=== PATIENT | male | born 1985 | race African-American/Black ===

== ENCOUNTER 2017-09-08 21:28 | Emergency (ER) | payer SELFPAY ==
[2017-09-08] MEDS ORDERED: cefTRIAXone 250 MG in Lidocaine 1% 1 ML IM ONE (22:03)
[2017-09-08] MEDS ORDERED: metroNIDAZOLE 250 MG Tab PO ONE (22:03)
[2017-09-08] MEDS ORDERED: Azithromycin 250 MG Tab PO ONE (22:03)
--- NOTE | 2017-09-08 22:06 | EDM.PDOC ---
ED HPI GENERAL MEDICAL PROBLEM - General Chief Complaint: Genitourinary Problem Stated Complaint: POSSIBLE STD/BURNING Time Seen by Provider: 09/08/17 21:54 - History of Present Illness INITIAL COMMENTS - FREE TEXT/NARRATIVE: HISTORY AND PHYSICAL: History of present illness: The patient is a 31-year-old male who presents with 4-5 days of burning with urination as well as some recent scan drainage from the penis. He has had an STD in the past and was aware of this and wanted to be treated. He denies any flank pain abdominal pain fever chills vomiting or diarrhea and has no testicular pain or swelling. He has no lesions in the perineal area that he is concerned about. He has no history other than the STD in the past with treatment Review of systems: As per history of present illness and below otherwise all systems reviewed and negative. Past medical history: As per history of present illness and as reviewed below otherwise noncontributory. Surgical history: As per history of present illness and as reviewed below otherwise noncontributory. Social history: No reported history of drug or alcohol abuse. Family history: As per history of present illness and as reviewed below otherwise noncontributory. Physical exam: Gen.: Well-developed well-nourished man who is nontoxic and vital signs been reviewed by me HEENT: Atraumatic, normocephalic, negative for conjunctival pallor or scleral icterus, mucous membranes moist, throat clear, neck supple, nontender, trachea midline. Lungs: Clear to auscultation, breath sounds equal bilaterally, chest nontender. Heart: S1S2, regular, negative for clicks, rubs, or JVD. Abdomen: Soft, nondistended, nontender. NABS Negative for costovertebral tenderness. Pelvis: Deferred Genitourinary: Deferred. Rectal: Deferred. Extremities: Atraumatic, negative for cords or calf pain. Neurovascular unremarkable. Neuro: Awake, alert, oriented. Cranial nerves II through XII unremarkable. Cerebellum unremarkable. Motor and sensory unremarkable throughout. Exam nonfocal. Diagnostics: I offered the patient testing but he said he wants just to be treated Therapeutics: Rocephin Zithromax Flagyl Impression: Urethritis Definitive disposition and diagnosis as appropriate pending reevaluation and review of above. Penis Pain Score (Numeric/FACES): 4 ED ROS GENERAL - Review of Systems Review Of Systems: ROS reveals no pertinent complaints other than HPI. ED EXAM, GENERAL - Physical Exam Exam: See Below (See dictation) Course - Vital Signs Last Recorded V/S: Last Vital Signs Temp 36.2 C 09/08/17 21:50 Pulse 72 09/08/17 21:50 Resp 14 09/08/17 21:50 BP 112/62 09/08/17 21:50 Pulse Ox 96 09/08/17 21:50 - Orders/Labs/Meds Orders: Active Orders 24 hr Category Date Time Status Azithromycin [Zithromax] Med 09/08/17 22:03 Once 1,000 mg PO ONETIME ONE cefTRIAXone [Rocephin] 250 mg Med 09/08/17 22:03 Ordered Lidocaine 1% [Xylocaine-MPF 1%] 1 ml IM ONETIME metroNIDAZOLE Med 09/08/17 22:03 Once 2,000 mg PO NOW ONE Departure - Departure Time of Disposition: 22:05 Disposition: Home, Self-Care 01 Condition: Good Clinical Impression: Urethritis - Discharge Information Referrals: PCP,None [Primary Care Provider] - Additional Instructions: The following information is given to patients seen in the emergency department who are being discharged to home. This information is to outline your options for follow-up care. We provide all patients seen in our emergency department with a follow-up referral. The need for follow-up, as well as the timing and circumstances, are variable depending upon the specifics of your emergency department visit. If you don't have a primary care physician on staff, we will provide you with a referral. We always advise you to contact your personal physician following an emergency department visit to inform them of the circumstance of the visit and for follow-up with them and/or the need for any referrals to a consulting specialist. The emergency department will also refer you to a specialist when appropriate. This referral assures that you have the opportunity for followup care with a specialist. All of these measure are taken in an effort to provide you with optimal care, which includes your followup. Under all circumstances we always encourage you to contact your private physician who remains a resource for coordinating your care. When calling for followup care, please make the office aware that this follow-up is from your recent emergency room visit. If for any reason you are refused follow-up, please contact the [facility] emergency department at and ask to speak to the emergency department charge nurse. [facility] Primary care- Internal Medicine and Family [address] [id number] Push hydration as we discussed and no sex for the next 3 days. After the next 3 days you may have sexual intercourse but please use condoms at all times. Please inform all partners that you have been treated with antibiotics and that they should seek care from their clinic provider. Please also refrain from alcohol use for the next 48 hours due to the Flagyl you have been given this evening. Return to ER as needed and as discussed - My Orders Last 24 Hours: My Active Orders 09/08/17 22:03 Azithromycin [Zithromax] 1,000 mg PO ONETIME ONE cefTRIAXone [Rocephin] 250 mg Lidocaine 1% [Xylocaine-MPF 1%] 1 ml IM ONETIME metroNIDAZOLE 2,000 mg PO NOW ONE - Assessment/Plan Last 24 Hours: My Active Orders 09/08/17 22:03 Azithromycin [Zithromax] 1,000 mg PO ONETIME ONE cefTRIAXone [Rocephin] 250 mg Lidocaine 1% [Xylocaine-MPF 1%] 1 ml IM ONETIME metroNIDAZOLE 2,000 mg PO NOW ONE
== END 2017-09-08 22:39 | disposition home or self-care (01) ==
LOC: MW.ED 21:28
DX: N34.2 Other urethritis (principal)
CPT/HCPCS: 96372; 99283; A9270; J0696; 99282

== ENCOUNTER 2017-10-03 18:46 | Emergency (ER) | payer SELFPAY ==
[2017-10-03] MEDS ORDERED: cefTRIAXone 250 MG Vial IM ONE (21:05)
[2017-10-03] MEDS ORDERED: Azithromycin 250 MG Tab PO ONE (21:06)
--- NOTE | 2017-10-03 21:09 | EDM.PDOC ---
ED HPI GENERAL MEDICAL PROBLEM - General Chief Complaint: Back Pain or Injury Stated Complaint: PT HAS BACK PAIN Time Seen by Provider: 10/03/17 20:49 - History of Present Illness INITIAL COMMENTS - FREE TEXT/NARRATIVE: HISTORY AND PHYSICAL: History of present illness: Patient 31-year-old male presents with concern of low back pain after a slip and fall earlier today he denies numbness weakness in concert distention bowel or bladder and also complaints of dysuria this symptom was prior to the fall. Review of systems: As per history of present illness and below otherwise all systems reviewed and negative. Past medical history: As per history of present illness and as reviewed below otherwise noncontributory. Surgical history: As per history of present illness and as reviewed below otherwise noncontributory. Social history: No reported history of drug or alcohol abuse. Family history: As per history of present illness and as reviewed below otherwise noncontributory. Physical exam: HEENT: Atraumatic, normocephalic, pupils reactive, negative for conjunctival pallor or scleral icterus, mucous membranes moist, throat clear, neck supple, nontender, trachea midline. Lungs: Clear to auscultation, breath sounds equal bilaterally, chest nontender. Heart: S1S2, regular, negative for clicks, rubs, or JVD. Abdomen: Soft, nondistended, nontender. Negative for masses or hepatosplenomegaly. Negative for costovertebral tenderness. Pelvis: Stable nontender. Genitourinary: Deferred. Rectal: Deferred. Extremities: Atraumatic, negative for cords or calf pain. Neurovascular unremarkable. Neuro: Awake, alert, oriented. Cranial nerves II through XII unremarkable. Cerebellum unremarkable. Motor and sensory unremarkable throughout. Exam nonfocal. Diagnostics: UA GC and Chlamydia UA culture and sensitivity Therapeutics: Rocephin 250 mg IM and azithromycin 1 g by mouth Impression: #1 observation status post fall #2 lumbar contusion #3 dysuria/urethritis Definitive disposition and diagnosis as appropriate pending reevaluation and review of above. Lower Back Pain Score (Numeric/FACES): 7 - Related Data Allergies Allergy/AdvReac Type Severity Reaction Status Date / Time No Known Allergies Allergy Verified 10/03/17 19:17 Home Meds: Home Meds . [No Known Home Meds] 09/08/17 [History] Past Medical History - Past Health History Medical/Surgical History: Denies Medical/Surgical History Social & Family History - Family History Family Medical History: Noncontributory - Tobacco Use Smoking Status *Q: Never Smoker Second Hand Smoke Exposure: No - Caffeine Use Caffeine Use: Reports: None - Recreational Drug Use Recreational Drug Use: No ED ROS GENERAL - Review of Systems Review Of Systems: ROS reveals no pertinent complaints other than HPI. ED EXAM, GENERAL - Physical Exam Exam: See Below (See dictation) Course - Vital Signs Last Recorded V/S: Last Vital Signs Temp 37.0 C 10/03/17 19:28 Pulse 63 10/03/17 19:28 Resp 12 10/03/17 19:28 BP 116/64 10/03/17 19:28 Pulse Ox 98 10/03/17 19:28 - Orders/Labs/Meds Orders: Active Orders 24 hr Category Date Time Status CULTURE URINE [RM] Stat Lab 10/03/17 21:05 Uncollected UA W/MICROSCOPIC [URIN] Stat Lab 10/03/17 21:05 Uncollected Azithromycin [Zithromax] Med 10/03/17 21:06 Once 1,000 mg PO Q24H ONE cefTRIAXone [Rocephin] Med 10/03/17 21:05 Once 250 mg IM ONETIME ONE Departure - Departure Time of Disposition: 21:08 Disposition: Home, Self-Care 01 Condition: Good Clinical Impression: Contusion, Urethritis - Discharge Information Referrals: PCP,None [Primary Care Provider] - Additional Instructions: The following information is given to patients seen in the emergency department who are being discharged to home. This information is to outline your options for follow-up care. We provide all patients seen in our emergency department with a follow-up referral. The need for follow-up, as well as the timing and circumstances, are variable depending upon the specifics of your emergency department visit. If you don't have a primary care physician on staff, we will provide you with a referral. We always advise you to contact your personal physician following an emergency department visit to inform them of the circumstance of the visit and for follow-up with them and/or the need for any referrals to a consulting specialist. The emergency department will also refer you to a specialist when appropriate. This referral assures that you have the opportunity for followup care with a specialist. All of these measure are taken in an effort to provide you with optimal care, which includes your followup. Under all circumstances we always encourage you to contact your private physician who remains a resource for coordinating your care. When calling for followup care, please make the office aware that this follow-up is from your recent emergency room visit. If for any reason you are refused follow-up, please contact the [facility] emergency department at and asked to speak to the emergency department charge nurse. I primary care [facility] Urology [address] [place] [id number] Call to Schedule appointment with urology above all sexual contacts to be evaluated by Isac Motceline/Tyldmiple as directed return as needed as discussed - My Orders Last 24 Hours: My Active Orders 10/03/17 21:05 CULTURE URINE [RM] Stat UA W/MICROSCOPIC [URIN] Stat cefTRIAXone [Rocephin] 250 mg IM ONETIME ONE 10/03/17 21:06 Azithromycin [Zithromax] 1,000 mg PO Q24H ONE - Assessment/Plan Last 24 Hours: My Active Orders 10/03/17 21:05 CULTURE URINE [RM] Stat UA W/MICROSCOPIC [URIN] Stat cefTRIAXone [Rocephin] 250 mg IM ONETIME ONE 10/03/17 21:06 Azithromycin [Zithromax] 1,000 mg PO Q24H ONE
[2017-10-03] MEDS ORDERED: Lidocaine 1% 2 ML ONE (21:11)
[2017-10-03] MEDS ORDERED: Lidocaine 1% 20 ML MDV INJECT ONE (21:15)
== END 2017-10-03 21:45 | disposition home or self-care (01) ==
LOC: MW.ED 18:46
DX: S30.0XXA Contusion of lower back and pelvis, initial encounter (principal); N34.2 Other urethritis; W19.XXXA Unspecified fall, initial encounter
CPT/HCPCS: 81001; 87086; 87491; 87591; 96372; 99283; A9270; J0696; 99282